=== PATIENT | female | born 2000 | race African-American/Black ===

== ENCOUNTER 2023-06-07 14:40 | Emergency (ER) | payer OTHER, SELFPAY ==
--- NOTE | ~2023-06-07 | CT_ITS ---
EXAMINATION: CT abdomen pelvis w con INDICATION: Right-sided abdominal pain TECHNIQUE: Computed tomographic images of the abdomen and pelvis were obtained after the administrati on of 100 cc of Omnipaque 350 intravenous contrast. The dose-length product (DLP) was 416.82 mGy-cm. Automated exposure control and iterative reconstruction technique were employed. COMPARISON: None available FINDINGS: The lung bases are clear. The heart size is normal. The liver, spleen, pancreas, gallbladde r, and adrenal glands are normal. The kidneys are unremarkable. No pathologically enlarged abdominal or pelvic lymph nodes are identified. There is no free intraperitoneal gas or evidence of bowel obstr uction. The appendix is normal. There is a probable corpus luteum of the right ovary. There is mild i ll-defined contrast enhancement in the right adnexa is nonspecific possibly related to phase of menst rual cycle. IMPRESSION: 1. Probable corpus luteum of the right ovary. Further evaluation with pelvic ultrasound is recommende d. Reviewed, dictated and finalized at location B. CLEANER IMPRESSION: 1. Probable corpus luteum of the right ovary. Further evaluation with pelvic ul trasound is recommended.
--- NOTE | ~2023-06-07 | US_ITS ---
EXAMINATION: US pelvic complete DATE: 06/07/2023 18:12 INDICATION: Right ovarian cyst. TECHNIQUE: Multiple transabdominal and transvaginal sonographic images of the pelvis were obtained. COMPARISON: CT abdomen and pelvis 06/07/2023 FINDINGS: TRANSABDOMINAL ULTRASOUND: The uterus measures 8.3 x 3.1 x 4.7 cm. There is no free fluid in the pelvis. TRANSVAGINAL ULTRASOUND: The endometrial complex measures 9 mm in thickness. The right ovary measures 3.4 x 2.0 x 2.3 cm. The left ovary measures 2.1 x 3.0 x 2.3 cm. IMPRESSION: 1. Normal pelvis. Reviewed, dictated and finalized at location E. ING MACHINE TENDER IMPRESSION: 1. Normal pelvis.
[2023-06-07 14:45] VITALS: BP 131/76; PULSE 91; RESP 18; TEMP 36.3; O2SAT 100
--- NOTE | 2023-06-07 15:32 | ED.ABDPAIN ---
HPI - Abdominal Pain General Chief Complaint: Abdominal Pain <Lucia Arreola PA-C - Last Filed: 06/07/23 18:24> Stated Complaint: ab pain <RADHA Dumont Last Filed: 06/07/23 18:24> Time Seen by Provider: 06/07/23 15:08 <Lucia Arreola PA-C - Last Filed: 06/07/23 18:24> History of Present Illness HPI narrative: 22-year-old female, LMP 05/17/2023, reports for evaluation for intermittent suprapubic, right lower quadrant and right upper quadrant abdominal pain x4 days. Patient states the pain comes and goes but is unable to identify any aggravating or alleviating factors. She denies vaginal discharge, concern for STDs, dysuria or hematuria, urinary frequency or urgency, flank pain. Last bowel movement was today normal. Denies nausea, vomiting or diarrhea, fevers, chest pain or shortness of breath. <RADHA Dumont Last Filed: 06/07/23 18:24> Related Data Allergies/Adverse Reactions: Allergies Allergy/AdvReac Type Severity Reaction Status Date / Time No Known Allergies Allergy Verified 06/07/23 15:51 <RADHA Dumont Last Filed: 06/07/23 18:24> Review of Systems Review of Systems: CONSTITUTIONAL: Denies fever, chills EYES: Denies visual changes, redness, or discharge. ENT: Denies rhinorrhea, congestion, sore throat, or otalgia. CARDIOVASCULAR: Denies chest pain, palpitations, or edema. RESPIRATORY: Denies cough or dyspnea. GASTROINTESTINAL: See HPI GENITOURINARY: Denies dysuria or hematuria. SKIN: Denies rash or itching. MUSCULOSKELETAL: Denies back pain, joint pain, or myalgia. NEUROLOGIC: Denies headache, numbness, dizziness, or weakness. PSYCHIATRIC: Denies anxiety or depression. <Lucia Arreola PA-C - Last Filed: 06/07/23 18:24> Exam Narrative: GENERAL: Well-appearing, in no acute distress. Patient resting comfortably in exam bed. She is pleasant and conversational HEAD: Normocephalic EYES: PERRLA ENT: Nares clear. Mucous membranes moist. Oropharynx without tonsillar hypertrophy exudate or other lesions. NECK: Supple. CHEST: No respiratory distress. Clear to auscultation, no adventitious breath sounds. HEART: Regular rate and rhythm. No murmur heard. Normal peripheral pulses. ABDOMEN: Normal active bowel sounds. Abdomen soft with tenderness in the right upper quadrant, right lower quadrant and suprapubic region. No guarding, rebound or rigidity. No CVA tenderness. No overlying skin changes. Morales's negative. EXTREMITIES: Normal range of motion. No edema. SKIN: Warm, dry, no rash. NEURO: No focal deficits. Alert and oriented x3. PSYCH: Normal mood and affect. <Lucia Arreola PA-C - Last Filed: 06/07/23 18:24> Course SENIOR ASIC DESIGN ENGINEER/PA Physician Supervision I agree with midlevel documentation; I performed the medical decision making component of this evaluation. <Yuridia Bailon MD - Last Filed: 06/07/23 18:49> Vital Signs Vital signs: Vital Signs Temperature 97.3 F L 06/07/23 14:45 Pulse Rate 91 06/07/23 14:45 Respiratory Rate 18 06/07/23 14:45 Blood Pressure 131/76 06/07/23 14:45 Pulse Oximetry 100 06/07/23 14:45 Oxygen Delivery Room Air 06/07/23 14:45 Temperature 97.3 F L 06/07/23 14:45 Pulse Rate 91 06/07/23 14:45 Respiratory Rate 18 06/07/23 14:45 Blood Pressure 131/76 06/07/23 14:45 Pulse Oximetry 100 06/07/23 14:45 Oxygen Delivery Room Air 06/07/23 14:45 <Lucia Arreola PA-C - Last Filed: 06/07/23 18:24> Vital Signs Temperature 97.3 F L 06/07/23 14:45 Pulse Rate 91 06/07/23 14:45 Respiratory Rate 18 06/07/23 14:45 Blood Pressure 131/76 06/07/23 14:45 Pulse Oximetry 100 06/07/23 14:45 Oxygen Delivery Room Air 06/07/23 14:45 Temperature 97.3 F L 06/07/23 14:45 Pulse Rate 91 06/07/23 14:45 Respiratory Rate 18 06/07/23 14:45 Blood Pressure 131/76 06/07/23 14:45 Pulse Oximetry 100 06/07/23 14:45 Oxygen Delivery Room Air
[2023-06-07] MEDS: SODIUM CHLORIDE 0.9% IV 1,000 ML 999 ML IV CONT (15:52)
[2023-06-07] MEDS: Please add drug allergy info to patient profile. 1 EACH XX (15:52)
[2023-06-07] MEDS: KETOROLAC 30 MG/ML VIAL (*BKC) IV PUSH (15:52)
[2023-06-07 15:56] LABS: Basophils Percent Auto 0.4 % (0.2-1.2); Eosinophils Absolute Auto 0.1 K/mm3 (0-0.3); Eosinophils Percent Auto 1.5 % (0-4.4); Hematocrit 37.8 % (37.0-47.0); Hemoglobin 12.2 g/dL (12.0-15.0); Immature Granulocyte Absolute 0.01 K/mm3 (0.00-0.031); Immature Granulocyte Percent A 0.2 % (0-0.5); Lymphocytes Absolute Auto 2.11 K/mm3 (0.9-3.2); Lymphocytes Percent Auto 38.6 % (18.3-44.2); Mean Corpuscular HGB Conc 32.3 g/dl (32-36); Mean Corpuscular Hemoglobin 26.8 pg (26-34); Mean Corpuscular Volume 82.9 fl (80-100); Mean Platelet Volume 9.7 fl (7.4-10.4); Monocytes Absolute Auto 0.4 K/mm3 (0.1-0.6); Monocytes Percent Auto 6.4 % (2.6-8.5); Neutrophils Absolute Auto 2.9 K/mm3 (1.3-6.7); Neutrophils Percent Auto 52.9 % (45.5-73.1); Platelet Count Result 280 k/mm3 (150-375); Red Blood Count 4.56 M/mm3 (4.2-5.4); Red Cell Distribution Width 12.3 % (11.5-14.5); White Blood Count 5.5 K/mm3 (4.5-10.0)
[2023-06-07 16:00] LABS: Appearance Urine Clear (Clear); Bilirubin Urine Negative (Negative); Blood Urine Negative (Negative); Color Urine Yellow (Yellow); Glucose Urine UA Negative (Negative); Ketones Urine Negative (Negative); Leukocyte Esterase Ur Negative LEU/UL (Negative); Nitrate Urine Negative (Negative); Protein Urine Negative (Negative); Specific Grav Ur 1.017 (1.001-1.035); pH Urine 6.5 (5.0-9.0)
[2023-06-07 16:07] LABS: Alanine Aminotransferase 13 U/L (6-35); Albumin Level 4.6 g/dL (3.5-5.1); Alkaline Phosphatase 84 U/L (38-126); Anion Gap 11 mmol/L (8-16); Aspartate Amino Transferase 31 U/L (14-36); Bilirubin,Total 0.8 mg/dL (0.2-1.3); Blood Urea Nitrogen 11 mg/dL (7-17); Calcium 9.8 mg/dL (8.4-10.2); Carbon Dioxide 23 mmol/L (22-30); Chloride 107 mmol/L (98-107); Estimated Glomerular Filt Rate > 60; Glucose 100 mg/dL (65-110); Lipase 120 U/L (23-300); Potassium 3.8 mmol/L (3.4-5.0); Sodium 141 mmol/L (137-145)
[2023-06-07 16:10] LABS: Add Urine Microscopic? NO
== END 2023-06-07 18:36 | disposition home or self-care (01) ==
PROVIDERS: Emergency Provider Physician Assistant
DX: R10.31 Right lower quadrant pain (principal)
CPT/HCPCS: 36415; 74177; 76856; 80053; 81003; 81025; 83690; 85025; 96361; 96374; 99284; J1885; J7030; Q9967

== ENCOUNTER 2023-06-16 22:31 | Emergency (ER) | payer OTHER, SELFPAY ==
[2023-06-16 22:31] VITALS: BP 130/75; PULSE 105; RESP 18; TEMP 37.7; O2SAT 100
--- NOTE | 2023-06-16 22:31 | ED.DIZZY ---
HPI - Dizziness General Chief Complaint: Fever Stated Complaint: flu symptoms Source: patient Mode of arrival: ambulatory Limitations: no limitations History of Present Illness HPI Narrative: This is a 22-year-old female who presents to the ED via EMS with chief complaint of body aches, chills, fevers beginning this morning. Reports she took Tylenol with temporary relief. She states that she called EMS because she felt so weak. Denies cough, abdominal pain, chest pain, shortness of breath, nausea, vomiting, diarrhea, urinary problems. Denies neck pain, neck stiffness, flank pain. Related Data Allergies Allergy/AdvReac Type Severity Reaction Status Date / Time No Known Allergies Allergy Verified 06/16/23 22:37 Review of Systems Review of Systems: All systems as dictated in HPI Exam Narrative: GENERAL: Well-appearing, well-nourished, and in no acute distress. HEAD: Normocephalic, atraumatic. EYES: PERRLA and EOMI. ENT: Nares clear, no rhinorrhea or epistaxis. Mucous membranes moist. Oropharynx without tonsillar hypertrophy exudate or other lesions. NECK: Supple. No adenopathy or masses. CHEST: No respiratory distress. Clear to auscultation. No wheezes rales or rhonchi HEART: Regular rate and rhythm. No murmur heard. Normal peripheral pulses. ABDOMEN: Soft, nontender, nondistended, normal active bowel sounds. MSK: Normal range of motion. No edema. SKIN: Warm, dry, no rash. NEURO: Alert and oriented x3. No focal deficits. PSYCH: Normal mood and affect. Course Course Emergency Course: Evaluation 10/15/2057: Feeling better with Toradol. Ready to go home. Vital Signs Vital signs: Vital Signs Temperature 99.8 F H 06/16/23 22:31 Pulse Rate 105 H 06/16/23 22:31 Respiratory Rate 18 06/16/23 22:31 Blood Pressure 130/75 06/16/23 22:31 Pulse Oximetry 100 06/16/23 22:31 Oxygen Delivery Room Air 06/16/23 22:31 Temperature 99.8 F H 06/16/23 22:31 Pulse Rate 105 H 06/16/23 22:31 Respiratory Rate 18 06/16/23 22:31 Blood Pressure 130/75 06/16/23 22:31 Pulse Oximetry 100 06/16/23 22:31 Oxygen Delivery Room Air 06/16/23 22:31 MDM - Dizziness MDM Narrative Medical decision making narrative: This is a 22-year-old female who presents to the ED with chief complaint of body aches, fevers, chills being this morning. Vitals show slightly elevated temperature 99.8? upon arrival. Otherwise they are normal. Exam is unremarkable. Symptoms consistent with viral syndrome. COVID flu swabs are negative, however suspect that she still may have COVID and it is too early to be detected. She feels better with Toradol. Pt will be discharged in stable condition. Return precautions given and supportive measures discussed. Pt is understanding and agreeable with plan for discharge and follow-up with PCP. Lab Data Labs: Lab Results 06/16/23 Range/Units 22:47 Influenza A (RT-PCR) Pending Influenza B (RT-PCR) Pending RSV (RT-PCR) Pending SARS-CoV-2 RNA (RT-PCR) Pending Discharge Plan Discharge Clinical Impression: Acute viral syndrome Patient Disposition: Home, Self-Care Condition: Stable Instructions: Antibiotic Form Additional Instructions: Your exam is reassuring today. It is still possible that you have COVID. Please make sure they are getting plenty of rest and fluids at home. Use Tylenol and ibuprofen for fevers. Return for any new or worsening symptoms. Follow-up/Referrals: PHYSICIAN,FIBER TECHNOLOGIST [Primary Care Provider] - Stand Alone Forms: Work/School Release IP Time of Disposition: 23:59
[2023-06-16] MEDS: KETOROLAC 30 MG/ML VIAL (*BKC) IM (22:55)
[2023-06-16 23:27] LABS: Influenza A QL RT-PCR Negative (Negative); Influenza B QL RT-PCR Negative (Negative); RSV RNA, RT-PCR Negative (Negative); SARS-CoV-2 RNA PCR Negative (Negative)
[2023-06-17 00:02] VITALS: BP 123/66; PULSE 104; RESP 16; TEMP 37.4; O2SAT 100
== END 2023-06-17 00:05 | disposition home or self-care (01) ==
PROVIDERS: Emergency Provider Physician Assistant
DX: B34.9 Viral infection, unspecified (principal); Z20.822 Contact with and (suspected) exposure to COVID-19
CPT/HCPCS: 87637; 96372; 99283; J1885